=== PATIENT | male | born 1950 | race Caucasian/White ===

== ENCOUNTER 2017-04-04 10:53 | Outpatient (CLI) | payer MEDICARE, MEDICAID ==
[2017-04-04 12:35] LABS: #Basophils 0.1 thou/uL (0.0-0.2); #Eosinphils 0.4 thou/uL (0.0-0.7); #Monocytes 0.7 thou/uL (0.11-0.59); #Neutrophils 3.2 thou/uL (1.40-6.50); %Basophils 1.4 % (0.0-1.0); %Eosinophils 5.9 % (0.0-10.0); %Lymphocytes 40.2 % (21.0-51.0); %Monocytes 9.3 % (0.0-10.0); %Neutrophils 43.2 % (42.0-75.0); Hemoglobin 17.2 g/dL (14.0-18.0); Mean Corpuscular HGB CONC 33.7 g/dL (32.0-36.0); Mean Corpuscular Hemoglobin 31.7 pg (27.0-31.0); Mean Corpuscular Volume 93.9 fl (80.0-94.0); Mean Platelet Volume 7.2 fL (7.4-10.4); Platelet Count 210 thou/uL (130-400); RBC Distribution Width 14.1 % (11.5-14.5); Red Blood Cell (RBC) Count 5.42 mill/uL (4.70-6.10); White Blood Cell (WBC) Count 7.3 thou/uL (4.8-10.8)
[2017-04-04 12:44] LABS: ALT (SGPT) 15 U/L (8-55); AST (SGOT) 15 U/L (5-34); Albumin 4.1 g/dL (3.4-4.8); Alkaline Phosphatase 64 U/L (40-150); Anion Gap 15 mmol/L (10-20); BUN (Urea Nitrogen) 17 mg/dL (8.4-25.7); Bilirubin, Total 0.4 mg/dL (0.2-1.2); Calc. Creatinine Clearance 0 mL/min (70-130); Calcium 9.5 mg/dL (7.8-10.44); Carbon Dioxide 23 mmol/L (23-31); Cardiac Risk 5.2 (Less than 4.5); Chloride 107 mmol/L (98-107); Cholesterol 165 mg/dl (< 200 Desired); Estimated GFR-MDRD 53; Globulin 3.2 g/dL (2.4-3.5); Glucose 149 mg/dL (80-115); HDL Cholesterol 32 mg/dL (>60 Neg Risk); LDL Cholesterol, Calculated 112 mg/dL; Potassium 4.4 mmol/L (3.5-5.1); Protein, Total 7.3 g/dL (5.8-8.1); Sodium 141 mmol/L (136-145); Triglycerides 104 mg/dL (Less than 150)
[2017-04-04 13:03] LABS: Hemoglobin A1c 7.5 % (4.0-6.0)
[2017-04-04 13:14] LABS: Free T4 (Free Thyroxine) 1.21 ng/dL (0.70-1.48); PSA-Asymptomatic (SCREENING) 2.74 ng/mL (0-4.0); Thyroid Stimulating Hormone 0.0615 uIU/mL (0.35-4.94)
== END 2017-04-04 10:54 | disposition home or self-care (01) ==
LOC: HPCALD 10:53
PROVIDERS: ATTEND Family Medicine
DX: Z12.5 Encounter for screening for malignant neoplasm of prostate (principal); E03.9 Hypothyroidism, unspecified; E78.5 Hyperlipidemia, unspecified; I10 Essential (primary) hypertension; E11.9 Type 2 diabetes mellitus without complications
CPT/HCPCS: 36415; 80053; 80061; 83036; 84439; 84443; 85025; G0103

== ENCOUNTER 2018-03-25 09:35 | Outpatient (CLI) | payer MEDICARE, MEDICAID ==
--- NOTE | 2018-03-25 18:37 | RAD ---
CHEST THREE VIEWS: 03/25/18 Comparison is made with the 07/11/16 study. The heart remains normal in size. The lungs are clear with no infiltrate, effusion, or acute pulmonar y changes. A little bit of lingular haziness was present before and is probably some minimal scarring . Degenerative changes seen in the spine as well as scoliosis convexed right. The trachea is midline. IMPRESSION: Stable chest with no acute findings. POS: HOME
== END 2018-03-25 09:36 | disposition home or self-care (01) ==
LOC: BURRAD 09:35
PROVIDERS: ATTEND Family Medicine
DX: R07.89 Other chest pain (principal)
CPT/HCPCS: 71046

== ENCOUNTER 2019-02-14 15:48 | Emergency (ER) | payer MEDICAID, MEDICARE ==
[2019-02-14] MEDS ORDERED: Sulfameth/Trimethoprim DS 800-160mg TAB ONE (16:19)
== END 2019-02-14 16:24 | disposition home or self-care (01) ==
LOC: BURERS 15:48
DX: M70.21 Olecranon bursitis, right elbow (principal); W18.30XA Fall on same level, unspecified, initial encounter
CPT/HCPCS: 99283

== ENCOUNTER 2019-03-12 20:14 | Emergency (ER) | payer MEDICARE, MEDICAID ==
--- NOTE | 2019-03-12 21:07 | CT ---
CT OF THE BRAIN WITHOUT CONTRAST: 03/12/19 Comparison is made with the 12/09/12 study. The ventricles are normal in size with no shift. No intracranial bleeding or extra-axial hematoma was seen. There is no sign of mass, edema, or stroke. The skull appears intact. There is no air fluid le martha in the sphenoid sinus or mastoid air cells. IMPRESSION: No acute intracranial findings. POS: HOME
== END 2019-03-12 21:05 | disposition home or self-care (01) ==
LOC: BURERS 20:14
DX: S01.01XA Laceration without foreign body of scalp, initial encounter (principal); E11.9 Type 2 diabetes mellitus without complications; E03.9 Hypothyroidism, unspecified; W19.XXXA Unspecified fall, initial encounter; Z79.891 Long term (current) use of opiate analgesic
CPT/HCPCS: 12002; 70450

== ENCOUNTER 2019-03-28 06:48 | Emergency (ER) | payer MEDICARE, MEDICAID | END 2019-03-28 06:58 | disposition home or self-care (01) | LOC: BURERS 06:48 | DX: S01.01XD Laceration without foreign body of scalp, subsequent encounter (principal); E11.9 Type 2 diabetes mellitus without complications; E03.9 Hypothyroidism, unspecified; W19.XXXD Unspecified fall, subsequent encounter ==

== ENCOUNTER 2019-07-29 07:46 | Outpatient (CLI) | payer MEDICARE, MEDICAID ==
[2019-07-29] MEDS ORDERED: Iopamidol 370 76% 100 ML VIAL ONE (12:47)
--- NOTE | 2019-07-29 17:44 | CT ---
CT ABDOMEN AND PELVIS WITH CONTRAST: 07/29/19 Comparison is made with the prior study of 05/28/18. The lung bases are clear. The liver, spleen, and pancreas are unremarkable in appearance. The gallbla dder is small but contains no gross stones. There is probably a small adenoma in the left adrenal gla nd. This has been commented on before. The aorta is normal in caliber. No renal mass or hydronephrosi s was seen. The upper abdomen shows some prominence of the gastric folds, though not unlike the prior exam. There are no distended loops of bowel to suggest obstruction. One again sees bowel that appears to be colo n adherent to the inside of the left lower abdominal wall with a fistulous connection from it through the skin to the skin surface. The area shows a small amount of streaking in the fat around it sugges ting some degree of inflammatory change. I would also note that the thickness of the bowel wall in th e transverse colon to the splenic flexure region seems slightly increased compared to the prior scan. This also may be true in the cecal region. Colitis is not excluded. Diverticula are certainly seen a ssociated with the colon. No free air or free fluid was evident. CT of the pelvis shows marked thickening of the urinary bladder wall and apparent connection of it to the sigmoid colon. 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 I do not see air in the bladder as previously. There is no free fluid in the pelvis. I do not see any gross inflammatory change in t he deep pelvis. IMPRESSION: 1. 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 The bowel in this region seems thickened and there is a little bit of streaking round it. An active inflammator y component here is probable. 2. Thickening of the urinary bladder and its contiguous nature with the adjacent sigmoid colon s uggests that there still may be a connection between the two. I do not see urinary bladder air as bef ore, however. 3. Some thickening of the folds in the colon, cecum and mid to distal transverse regions in part icular. This seems more prominent today than the older scan. Colitis is not ruled out. 4. No drainable abscesses were appreciated. POS: HOME
== END 2019-07-29 07:47 | disposition home or self-care (01) ==
LOC: BURCT 07:46
PROVIDERS: ATTEND Internal Medicine
DX: K63.2 Fistula of intestine (principal); K57.92 Diverticulitis of intestine, part unspecified, without perforation or abscess without bleeding
CPT/HCPCS: 74177; Q9967

== ENCOUNTER 2020-10-18 21:42 | Emergency (ER) | payer MEDICARE, MEDICAID | END 2020-10-18 23:15 | disposition home or self-care (01) | LOC: BURERS 21:42 | DX: R40.0 Somnolence (principal); T42.75XA Adverse effect of unspecified antiepileptic and sedative-hypnotic drugs, initial encounter; R60.0 Localized edema; E03.9 Hypothyroidism, unspecified; K21.9 Gastro-esophageal reflux disease without esophagitis; Z79.899 Other long term (current) drug therapy | CPT/HCPCS: 99283 ==

== ENCOUNTER 2021-09-10 16:22 | Emergency (ER) | payer MEDICARE, MEDICAID ==
[2021-09-10] MEDS ORDERED: Lidocaine 2% 20 ml MDV ONE (16:33)
== END 2021-09-10 16:55 | disposition home or self-care (01) ==
LOC: BURERS 16:22
DX: S91.202A Unspecified open wound of left great toe with damage to nail, initial encounter (principal); E11.9 Type 2 diabetes mellitus without complications; E03.9 Hypothyroidism, unspecified; F17.210 Nicotine dependence, cigarettes, uncomplicated
CPT/HCPCS: 11730

== ENCOUNTER 2021-12-09 00:58 | Emergency (ER) | payer MEDICARE, MEDICAID ==
[2021-12-09] MEDS ORDERED: Lidocaine 2% 20 ml MDV ONE (01:40)
== END 2021-12-09 02:12 | disposition home or self-care (01) ==
LOC: BURERS 00:58
DX: S61.412A Laceration without foreign body of left hand, initial encounter (principal); E11.9 Type 2 diabetes mellitus without complications; E03.9 Hypothyroidism, unspecified; F17.210 Nicotine dependence, cigarettes, uncomplicated; W18.30XA Fall on same level, unspecified, initial encounter; Z87.19 Personal history of other diseases of the digestive system
CPT/HCPCS: 12001